=== PATIENT | male | born 1965 | race Caucasian/White ===

== ENCOUNTER 2017-11-22 08:22 | Day surgery (SDC) | payer BC ==
--- OUTSIDE RECORDS SUMMARY | 2017-11-22 08:26 | XMS REPORT | Clinical Summary ---
:1965 Author Organization [facility] Address [address] [place] [address] Care Team Providers Name Role Phone Dimple Taylor MD Primary Care Provider Allergies No Known Allergies Current Medications Prescription Sig. Disp. Refills Start Date End Date Status atorvastatin 1 tablet once 90 tablet 1 12/03/2016 Active (LIPITOR) 20 MG a day tabletIndications: Mixed hyperlipidemia JARDIANCE 25 mg 1 tablet once 90 tablet 1 12/03/2016 Active tabletIndications: a day Type 2 diabetes mellitus with hyperglycemia, with long-term current use of insulin (HCC) metFORMIN 1 tablet 180 tablet 1 12/03/2016 Active (GLUCOPHAGE) 1,000 twice A day mg tabletIndications: Type 2 diabetes mellitus with hyperglycemia, with long-term current use of insulin (HCC) gabapentin 1 capsule 180 tablet 1 12/03/2016 Active (NEURONTIN) 600 mg twice a day tabletIndications: Neuropathy icosapent ethyl 2 capsules 360 capsule 1 12/03/2016 Active (VASCEPA) 1 gram twice a day capsuleIndications: Mixed hyperlipidemia lisinopril 1 tablet once 30 tablet 0 07/15/2017 Active (PRINIVIL,ZESTRIL) A day 20 mg tabletIndications: Essential hypertension insulin GLARGINE Inject 28 3 pen 0 07/19/2017 Active (LANTUS SOLOSTAR Units under U-100 INSULIN) 100 the skin unit/mL injection nightly. (pen) atorvastatin 1 tablet once 10/10/2016 Discontinued (LIPITOR) 20 MG a day 7 tablet JARDIANCE 25 mg 1 tablet once 11/30/2016 Discontinued tablet a day 7 gabapentin 1 capsule 10/10/2016 Discontinued (NEURONTIN) 600 mg twice a day 7 tablet lisinopril 1 tablet once 10/10/2016 Discontinued (PRINIVIL,ZESTRIL) A day 7 20 mg tablet metFORMIN 1 tablet 10/24/2016 Discontinued (GLUCOPHAGE) 1,000 twice A day 7 mg tablet insulin DETEMIR Inject under Discontinued (LEVEMIR FLEXTOUCH) the skin. 7 100 unit/mL (3 mL) Inject 28 insulin pen units under skin in evening adjust up to 50 units/day icosapent ethyl Take by Discontinued (VASCEPA) 1 gram mouth. 2 7 capsule capsules twice a day insulin DETEMIR Inject 28 15 pen 1 12/03/2016 Discontinued (LEVEMIR FLEXTOUCH) units under 8 100 unit/mL (3 mL) skin in insulin evening penIndications: Type adjust up to 2 diabetes mellitus 50 units/day with hyperglycemia, with long-term current use of insulin ([facility]) lisinopril 1 tablet once 90 tablet 1 12/03/2016 Discontinued (PRINIVIL,ZESTRIL) A day 8 20 mg tabletIndications: Essential hypertension insulin DETEMIR Inject 28 5 pen 0 07/15/2017 Discontinued (LEVEMIR FLEXTOUCH units under 8 U-100 INSULN) 100 skin in unit/mL (3 mL) evening insulin adjust up to penIndications: Type 50 units/day 2 diabetes mellitus with hyperglycemia, with long-term current use of insulin (HCC) Active Problems Problem Noted Date Type 2 diabetes mellitus with hyperglycemia, with long-term current use of insulin (HCC) Overview: Diagnosed 2014 Hyperlipidemia Hypertension Neuropathy Seasonal allergies Encounters Date Type Specialty Care Team Description 07/22/2017 Telephone Internal Medicine Natalie Sanchez MA 07/19/2017 Orders Only Internal Medicine Dimple Taylor MD 07/14/2017 Orders Only Internal Medicine Dimple Taylor, Mixed hyperlipidemia (Primary Dx); Essential hypertension; Type 2 diabetes mellitus with hyperglycemia, with long-term current use of insulin 07/12/2017 Refill Internal Medicine Dimple Taylor, Type 2 diabetes mellitus with hyperglycemia, with long-term current use of insulin; Essential hypertension 12/03/2016 Office Visit Internal Medicine Dimple Taylor, Type 2 diabetes mellitus with hyperglycemia, with long-term current use of insulin ( Primary Dx); MD Essential hypertension; Neuropathy; Mixed hyperlipidemia; Flu vaccine need 12/03/2016 Orders Only Internal Medicine Provider, MD Kalina after 11/21/2016 Immunizations Name Dates Previously Given Next Due INFLUENZA QUAD PF 12/03/2016 Family History Medical History Relation Name Comments Heart attack Brother Leukemia Father Diabetes Mother Heart disease Mother Hyperlipidemia Mother Relation Name Status Comments Brother (Age 53) Father (Age 63) Maternal Grandfather Maternal Grandmother Mother Alive Paternal Grandfather Paternal Grandmother Social History Tobacco Use Types Packs/Day Years Used Date Never Smoker Smokeless Tobacco: Never Used Alcohol Use Drinks/Week oz/Week Comments Yes occasional Sex Assigned at Date Recorded Not on file Last Filed Vital Signs Vital Sign Reading Time Taken Blood Pressure 134/94 12/03/2016 1:43 PM CDT Pulse 79 12/03/2016 1:43 PM CDT Temperature 36.5 C (97.7 F) 12/03/2016 1:43 PM CDT Respiratory Rate - - Oxygen Saturation 98% 12/03/2016 1:43 PM CDT Inhaled Oxygen Concentration - - Weight 95.3 kg (210 lb) 12/03/2016 1:43 PM CDT Height 177.8 cm (5' 10") 12/03/2016 1:43 PM CDT Body Mass Index 30.13 12/03/2016 1:43 PM CDT Plan of Treatment Health Maintenance Due Date Last Done Comments DIABETIC FOOT EXAM 1976 DIABETIC RETINAL EYE EXAM 1976 URINE MICROALBUMIN 1976 COLON CANCER SCREENING 2016 SHINGRIX VACCINE (#1) 2016 INFLUENZA VACCINE 09/11/2017 12/03/2016 Procedures Procedure Name Priority Date/Time Associated Diagnosis Comments OBTAIN MEDICAL RECORDS Routine 12/03/2016 12:00 AM CDT after 11/21/2016 Results Obtain medical records (12/03/2016) Narrative Performed At after 11/21/2016
--- OUTSIDE RECORDS SUMMARY | 2017-11-22 08:27 | XMS REPORT ---
:1965 Author Organization [employer] Care Team Providers Name Role Phone Shamir Serrato Provider Role Unavailable Allergies No Known Allergies Problems Problem Type Condition Code Onset Dates Condition Status Assessment Routine adult health maintenance Z00.00 Active Problem HTN, goal below 130/80 I10 Active Problem [facility] current use of insulin Z79.4 Active Problem Mixed hyperlipidemia E78.2 Active Problem Seasonal allergies J30.2 Active Problem Peripheral polyneuropathy G62.9 Active Problem Chewing tobacco nicotine dependence F17.229 Active with nicotine-induced disorder Problem Type 2 diabetes mellitus with E11.65 Active hyperglycemia Problem Type 2 diabetes mellitus with E11.8 Active unspecified complications 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 Assessment Seasonal allergies J30.2 Active Assessment Need for Tdap vaccination Z23 Active Assessment Colon cancer screening Z12.11 Active Assessment Mixed hyperlipidemia E78.2 Active Assessment Type 2 diabetes mellitus with E11.65 Active hyperglycemia Assessment Chewing tobacco nicotine dependence F17.229 Active with nicotine-induced disorder Assessment HTN, goal below 130/80 I10 Active Assessment Peripheral polyneuropathy G62.9 Active Assessment Type 2 diabetes mellitus with E11.8 Active unspecified complications Medications Medication Code Code Instructions Start End Status Dosage System Date Date [facility] 02929596295 100 MG Orally Nov 11, Active 1 tablet Once a day 2017 Atorvastatin [place] 85158237808 20 MG Orally Once Active 1 tablet Calcium a day Vascepa [facility] 59807981035 1 GM Orally Twice Dec Active 2 capsules a day 30, with meals 2017 Toujeo SoloStar ND 78318369360 300u/ml Nov 11Dec Active inject 15 subcutaneously 2017 30, units sq once daily 2018 at [facility] Levemir ND 05343397589 Sub Q Once Daily Nov Inactive not FlexTouch , 2017 Metformin HCl ND 44606916795 1000 MG Orally Active 1 tablet Once a day with a meal Jardiance ND 02917814329 25 MG Orally Once Dec Active 1 tablet a day 2017 Lisinopril ND 70441327607 20 MG Orally Once Active 1 tablet a day Gabapentin ND 49507600646 600 MG Orally Active 1 tablet Twice a day Results No Known Results Immunizations Vaccine Administration Date TDAP > 7 Years-Adacel Nov 11, 2017 Summary Purpose [employer]Clinical[employer] Submission
--- OUTSIDE RECORDS SUMMARY | 2017-11-22 08:27 | XMS REPORT ---
:1965 Author Organization [employer] Care Team Providers Name Role Phone Shamir Serrato Provider Role Unavailable Allergies, Adverse Reactions, Alerts Substance Reaction Event Type N.K.D.A. 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 Active with nicotine-induced disorder Problem Type 2 diabetes mellitus with E11.65 Active hyperglycemia Problem Type 2 diabetes mellitus with E11.8 Active unspecified complications Assessment Type 2 diabetes mellitus with E11.65 Active hyperglycemia Assessment Chewing tobacco nicotine dependence F17.229 Active with nicotine-induced disorder Assessment Peripheral polyneuropathy G62.9 Active Assessment 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 Assessment Mixed hyperlipidemia E78.2 Active Assessment Seasonal allergies J30.2 Active Assessment HTN, goal below 130/80 I10 Active Medications Medication Code Code Instructions Start End Status Dosage System Date Date Lisinopril [facility] 80462207686 20 MG Orally Active 1 tablet Once a day Metformin HCl ND 05042635808 1000 MG Orally Active 1 tablet Once a day with a meal Gabapentin ND 51810747384 600 MG Orally Active 1 tablet Twice a day Levemir [facility] 27616789302 Sub Q Once Active not defined FlexTouch Daily Vascepa [facility] 56293170646 1 GM Orally Active 2 capsules Twice a day with meals Jardiance [facility] 98547531797 25 MG Orally Active 1 tablet Once a day Atorvastatin ND 08164621676 20 MG Orally Active 1 tablet Calcium Once a day Results No Known Results Summary Purpose [employer] Submission
--- OUTSIDE RECORDS SUMMARY | 2017-11-22 08:27 | XMS REPORT ---
:1965 Author Organization [employer] Care Team Providers Name Role Phone Shamir Serrato Provider Role Unavailable Allergies No Known Allergies Problems Problem Type Condition Code Onset Dates Condition Status Assessment Type 2 diabetes mellitus with E11.8 Active unspecified complications Problem HTN, goal below 130/80 I10 Active Problem shelter current use of insulin Z79.4 Active Problem Mixed hyperlipidemia E78.2 Active Problem Seasonal allergies J30.2 Active Problem Peripheral polyneuropathy G62.9 Active Problem Chewing tobacco nicotine dependence F17.229 Active with nicotine-induced disorder Problem Type 2 diabetes mellitus with E11.65 Active hyperglycemia Problem Type 2 diabetes mellitus with E11.8 Active unspecified complications Medications Medication Code Code Instructions Start End Date Status Dosage System Date Metformin HCl [facility] 62090493661 1000 MG Orally Active 1 tablet Twice a day with a meal Results No Known Results Summary Purpose eClinicalWorks Submission
--- OUTSIDE RECORDS SUMMARY | 2017-11-22 08:27 | XMS REPORT ---
:1965 Author Organization [employer] Care Team Providers Name Role Phone Rojelio Shamir Provider Role Unavailable Allergies No Known Allergies Problems Problem Type Condition Code Onset Dates Condition Status Problem HTN, goal below 130/80 I10 Active [...] Start End Status Dosage System Date Date Jardiance [facility] 73172796241 25 MG Orally Once Feb 09, Active 1 tablet a day 2017 Atorvastatin ND 71833670506 20 MG Orally Once Active 1 tablet Calcium a day Gabapentin ND 33761624990 600 MG Orally Active 1 tablet Twice a day Metformin HCl ND 06769594794 1000 MG Orally Active 1 tablet Once a day with a meal Touirma PedrozaoStar ND 92864523009 300u/ml Nov 11, Jan 10, Active inject 15 subcutaneously 2017 2018 units sq once daily at [facility] [place] Gemfibrozil ND 69111002170 600 MG Orally Nov 18, Active 1 tablet Twice a day 2017 Vascepa [facility] 91385159027 1 GM Orally Twice Nov 18, Active 2 capsules a day 2018 with meals Lisinopril ND 99848634920 20 MG Orally Once Active 1 tablet a day Januvia ND 23465315529 100 MG Orally Nov 11, Active 1 tablet Once a day 2018 Results No Known Results Summary Purpose [employer]ClinicalWorks Submission
[2017-11-22] MEDS ORDERED: NA CHLORIDE 0.9% 1,000 ML ONE (08:37)
[2017-11-22] MEDS ORDERED: LIDOCAINE 2% MPF 5 ML VIAL ONE (10:50)
[2017-11-22] MEDS ORDERED: PROPOFOL 200 MG/20 ML VIAL IV ONE (10:51)
[2017-11-22 11:38] VITALS: TEMP 98.6
--- NOTE | 2017-11-22 11:39 | ENDO RPT ---
[address], [address] COLONOSCOPY PROCEDURE REPORT EXAM DATE: 11/22/2017 PATIENT NAME: Jh Rivas MR #: [id number] BIRTHDATE: 1965 ATTENDING: Justino Chavarria DR STATUS: outpatient POUNDMASTER: Julisa Altamirano RN and Harpreet Sen INDICATIONS: The patient is a 52 yr old Male here for a colonoscopy due to colon cancer screening PROCEDURE PERFORMED: Colonoscopy with biopsy - cold polypectomy MEDICATIONS: Per Anesthesia. ESTIMATED BLOOD LOSS: None CONSENT: The patient understands the risks and benefits of the procedure and understands that these risks include, but are not limited to: sedation, allergic reaction, infection, perforation and/or bleeding. Alternative means of evaluation and treatment include, among others: physical exam, x-rays, and/or surgical intervention. The patient elects to proceed with this endoscopic procedure. DESCRIPTION OF PROCEDURE: During intra-op preparation period all mechanical medical equipment was checked for proper function. Hand hygiene and appropriate measures for infection prevention was taken. Procedure, possible complications, alternatives including, but not limited to possibility of bleeding, perforation, tear, infection, sepsis, need for surgery, need for blood transfusion, were explained to the patient. After the risks, benefits and alternatives of the procedure were thoroughly explained, Informed consent was verified, confirmed and timeout was successfully executed by the treatment team. The patient was placed in the left lateral position. A digital rectal exam was performed and revealed no abnormalities of the rectum. After appropriate level of anesthesia, the scope was passed. The [id number] ([id number]) endoscope was introduced through the anus and advanced to the cecum, which was identified by both the appendix and ileocecal valve. The quality of the prep was fair. The instrument was then slowly withdrawn as the colon was fully examined. Scope withdrawal time was 9 minutes. COLON FINDINGS: A small smooth semi-pedunculated polyp was found in the right colon. A polypectomy was performed with cold forceps. The resection was complete, the polyp tissue was completely retrieved and sent to histology. Retroflexed views revealed no abnormalities. The scope was then completely withdrawn from the patient and the procedure terminated. ADVERSE EVENTS: There were no complications. IMPRESSIONS: Small semi-pedunculated polyp was found in the right colon; polypectomy was performed with cold forceps RECOMMENDATIONS: 1. avoid NSAIDS for 2 weeks 2. await biopsy results 3. fiber rich diet 4. follow-up: office 2 week(s) RECALL: for Colonoscopy, pending biopsy results. 5-[address] eSigned: Justino Chavarria DR 11/22/2017 11:32 AM cc: CPT CODES: ICD9 CODES: PATIENT NAME: Jh Rivas MR#: [id number]
[2017-11-22 11:59] VITALS: BP 107/71; O2SAT 96
== END 2017-11-22 12:00 | disposition home health service (06) ==
LOC: OR 08:22
PROVIDERS: ATTEND Surgery
PROC: 0DBF8ZX Excision of Right Large Intestine, Via Natural or Artificial Opening Endoscopic, Diagnostic (ICD-10-PCS; principal; 2017-11-22 10:30)
DX: Z12.11 Encounter for screening for malignant neoplasm of colon (principal); D12.2 Benign neoplasm of ascending colon; I10 Essential (primary) hypertension; E78.2 Mixed hyperlipidemia; F17.220 Nicotine dependence, chewing tobacco, uncomplicated; Z79.4 Long term (current) use of insulin; E11.65 Type 2 diabetes mellitus with hyperglycemia; Z83.3 Family history of diabetes mellitus; Z82.49 Family history of ischemic heart disease and other diseases of the circulatory system
CPT/HCPCS: 82962; 88305; J7030